=== PATIENT | male | born 1980 | race Caucasian/White ===

== ENCOUNTER 2019-04-01 11:43 | Inpatient (IN) | payer OTHER ==
[~2019-04-01] VITALS: Ht 167.6 cm; Wt 63.5 kg
[~2019-04-01 11:43] MED LIST: AUGMENTIN 875875 MG PO; BACTRIM DS TAB1 EACH PO; CLEOCIN HCL150 MG PO; DOLOPHINE HCL10 MG PO; FEVERALL JR 32325 M1 PO; IBUPROFEN 600600 M1 PO; IBUPROFEN 800800 M1 PO; KEFLEX500 MG PO; MUCINEX DM TABL1 TA1; NOHOMEMEDICATIONS; NORCO 5-325 TA1 EACH PO; OXYCODONE HCL E10 MG PO; OXYCODONE HCL5 MG PO; OXYCODONE HYDROC5 GM MC; PENICILLIN V P500 MG PO; PERCOCET 5-3251 EACH PO; PERCOCET PO; PRENATAL VITAM1 EAC4; VITAMIN B-1100 M1
[2019-04-01 11:45] VITALS: BP 125/97
[2019-04-01 12:02] LABS: HEMATOCRIT 45.5 % (42.0-52.0); HEMOGLOBIN 15.7 gm/dL (14.0-18.0); MCH 31.8 pg (26.0-34.0); MCHC 34.6 g/dL (28.0-37.0); RBC 4.94 mil/uL (4.50-6.00); WBC 5.8 thou/uL (4.0-11.0)
[2019-04-01 12:14] LABS: CREATININE 0.4 mg/dL (0.7-1.3)
[2019-04-01 14:37] VITALS: BP 106/72
[2019-04-01 14:40] LABS: AMP/METHAMP Negative (Negative); BARBITURATES Negative (Negative); BENZODIAZEPINES Negative (Negative); COCAINE Negative (Negative); METHADONE Negative (Negative); OPIATES POSITIVE (Negative); PCP Negative (Negative)
[2019-04-01 15:15] VITALS: BP 103/65
[2019-04-01 17:01] VITALS: BP 112/67
[2019-04-01 20:32] VITALS: BP 114/68
[2019-04-02 05:48] VITALS: BP 113/67
[2019-04-02 07:42] VITALS: BP 125/88
[2019-04-02 19:19] VITALS: BP 139/44
[2019-04-03 05:30] VITALS: BP 129/49
[2019-04-03 06:01] LABS: APTT 27.8 Seconds (24.5-32.8); INR 1.1; PROTIME 11.4 Seconds (9.3-11.4)
[2019-04-03 08:50] VITALS: BP 117/72
[2019-04-03 16:28] VITALS: BP 125/65
[2019-04-03 19:33] VITALS: BP 128/74
[2019-04-04 05:17] VITALS: BP 122/77
[2019-04-04 05:18] LABS: ABSOLUTE NEUTROPHILS 4.1 thou/uL (1.4-8.2); BASOPHILS 0.7 % (0.0-2.0); EOSINOPHILS 3.3 % (0.0-3.0); HEMATOCRIT 40.6 % (42.0-52.0); HEMOGLOBIN 13.8 gm/dL (14.0-18.0); LYMPHOCYTES 11.7 % (24.0-44.0); MCH 31.2 pg (26.0-34.0); MCHC 34.1 g/dL (28.0-37.0); MCV 91.6 fL (80.0-100.0); MONOCYTES 11.4 % (1.0-8.0); PLATELET COUNT 110 thou/uL (150-400); POLYS 72.9 % (36.0-66.0); RBC 4.43 mil/uL (4.50-6.00); RDW 14.4 % (10.5-14.5); WBC 5.6 thou/uL (4.0-11.0)
[2019-04-04 05:35] LABS: CALCIUM 8.1 mg/dL (8.5-10.1); CREATININE 0.7 mg/dL (0.7-1.3); MAGNESIUM 1.9 mg/dL (1.8-2.4); POTASSIUM 4.6 mmol/L (3.5-5.1); TOTAL BILIRUBIN 0.8 mg/dL (<0.1-1.0); TOTAL PROTEIN 6.8 g/dL (6.4-8.2)
[2019-04-04 07:31] VITALS: BP 126/62
[2019-04-04 15:57] VITALS: BP 117/64
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
--- NOTE | 2019-04-04 19:51 | P ---
[facility] [place] [address] PROCEDURE REPORT Name: CAITLIN ANN Room #: 432-P ADM IN M.R.#: [id number] Admission: 04/01/19 ������������������ Attend Phys: Tony Keenan MD Discharge: ������������������ Date of : 84 Report #: [id number] THIS REPORT FOR: //name// CC: [facility] physician/PCP Tony Keenan DATE OF SERVICE: 04/03/2019 CHIEF COMPLAINT: Abscess to the right lower extremity. PREPROCEDURE DIAGNOSIS: Subcutaneous abscess, right lower leg. POSTPROCEDURE DIAGNOSIS: Subcutaneous abscess, right lower leg. PROCEDURE PERFORMED: Incision and drainage of abscess of the right lower leg. SPECIMENS COLLECTED: Culture and sensitivity of purulent contents of abscess. DESCRIPTION OF PROCEDURE: After appropriate informed consent was both given verbally and then signed, the area of the right leg was prepped and draped in the usual sterile fashion, then anesthetized with 1% lidocaine with epinephrine. Following adequate anesthesia, an incision was made with a #15 bladed scalpel, releasing a moderate amount of purulent material. A culture was obtained. The patient has specifically indicated he does not want to have his leg packed and will not allow for that. It was recommended; however, he once again is insistent that it be left open. The wound was dressed with a dry ABD and gauze dressing. The patient tolerated the procedure well. ESTIMATED BLOOD LOSS: 3 mL. Pain experienced with procedure 3 on a scale of 1-10. Postprocedure 2 on a scale of 1-10. The preprocedure measurements were 3.7 x 1.5 by intact skin. The postprocedure measurement is 3.8 x 1.8 x 1.2 cm. ��������������������������������������������� <ELECTRONICALLY SIGNED> ���������������������������������������� By: Cole Cook MD ��������������������������������������������� 04/04/19 1951 1401 0502 Cole Cook MD /nt
--- NOTE | 2019-04-04 19:51 | HC ---
[facility] [place] [address] CONSULTATION Name: CAITLIN ANN Room #: 432-P ADM IN M.R.#: [id number] Admission: 04/01/19 ������������������ Attend Phys: Tony Keenan MD Discharge: ������������������ Date of : 84 Report #: [id number] THIS REPORT FOR: //name// CC: [facility] physician/PCP Tony Keenan DATE OF SERVICE: 04/03/2019 CHIEF COMPLAINT: Multiple cutaneous abscesses. HISTORY OF PRESENT ILLNESS: This is a 38-year-old male patient who was admitted through the Emergency Department with cellulitis of the right wrist and shoulder and an abscess of the right lower leg. The patient had had incision and drainage of his right, from hand and forearm on 03/06/2016. This area has been inflamed yet again, but he was admitted on 04/01/2019 with severe low back pain. Apparently, he fell off of a second-phoebe roof the previous day. PAST MEDICAL HISTORY: Positive for history of abscess to the left lower leg, multiple previous abscesses, cellulitis, compression fracture of the spine and has a history of IV drug abuse and noncompliance. ALLERGIES: ACETAMINOPHEN. MEDICATIONS: Include Keflex and Bactrim. SOCIAL HISTORY: The patient admits to cigarette smoking daily. He has a history of methamphetamine use. Denies alcohol use. FAMILY HISTORY: Noncontributory. REVIEW OF SYSTEMS: CONSTITUTIONAL: The patient denies fever, but does complain of some mild chills. ENT: The patient denies earache, nasal drainage or sore throat. CARDIOVASCULAR: The patient denies chest pain, palpitation or diaphoresis. PULMONARY: The patient denies cough or shortness of breath. GASTROINTESTINAL: The patient denies nausea, vomiting, diarrhea or abdominal pain. ORTHOPEDIC: The patient complains of pain and swelling in the left wrist area as well as the right anterior shoulder region as well as right lower leg. The right lower leg is the most painful. Other systems in a 14-point review of systems are negative. PHYSICAL EXAMINATION: VITAL SIGNS: The patient's vital signs at this time include temperature 99.0, pulse 90, respiratory rate of 18 and blood pressure 117/72. [address] [address] CONSULTATION Name: CAITLIN ANN Room #: 432-P ADM IN M.R.#: [id number] Admission: 04/01/19 ������������������ Attend Phys: Tony Keenan MD Discharge: ������������������ Date of : 84 Report #: [id number] GENERAL: This is a well-developed, well-nourished male patient, who appears to be in minimal distress. HEENT: Head normocephalic. Nose and throat are clear. NECK: Supple. LUNGS: Clear. ABDOMEN: Soft. Bowel sounds present. EXTREMITIES: Demonstrate erythematous and swollen areas involving the left wrist and forearm. No definitive area of abscess is noted at this time. He has a small area of erythema involving his right anterior axillary region. There is an abscess involving the right lower leg. An incision and drainage procedure was performed at the bedside today. Please see separate dictation. CLINICAL IMPRESSION: 1. Abscess of the right lower leg, now status post an incision and drainage at the bedside. 2. Recent L3 compression fracture. 3. History of chronic IV methamphetamine abuse. RECOMMENDATIONS: At this point in time, we will recommend culture and sensitivity from the abscess. He has declined to have the abscess packed and has asked that it be left unpacked. We have dressed it with dry gauze dressing. We would recommend IV antibiotics pending culture and sensitivity results. We will defer pain management to the hospitalist team. Although the patient has requested supplemental medications due to the abscess, I have once again discussed with him that the pain medication will be managed and written by only one of the physicians involved in his care. I appreciate being asked to see him in consultation. ��������������������������������������������� <ELECTRONICALLY SIGNED> ���������������������������������������� By: Cole Cook MD ��������������������������������������������� 04/04/19 1949 [id number] Cole Cook MD /nt
[2019-04-04 22:16] VITALS: BP 89/39
[2019-04-04 23:44] LABS: URINE BILIRUBIN NEGATIVE (Negative); URINE BLOOD NEGATIVE (Negative); URINE CLARITY SL CLOUDY; URINE COLOR YELLOW; URINE GLUCOSE-RANDOM* NEGATIVE (Negative); URINE KETONES NEGATIVE (Negative); URINE LEUKOCYTES-REFLEX NEGATIVE (Negative); URINE NITRITE-REFLEX NEGATIVE (Negative); URINE PROTEIN (DIPSTICK) NEGATIVE (Negative)
[2019-04-05 02:50] VITALS: BP 113/68
[2019-04-05] MEDS ORDERED: OXYCODONE HCL30 MG PO (08:42)
[2019-04-05] MEDS ORDERED: LINEZOLID600 MG PO (08:42)
[2019-04-05 10:43] VITALS: BP 113/68
[2019-04-05 11:28] VITALS: BP 116/65
== END 2019-04-05 13:50 | disposition home or self-care (01) | DRG 603 ==
LOC: ER 11:43 → 4E 14:26 → EROBS 14:26 → 4E 15:40
PROVIDERS: Physician Assistant; ADMIT Internal Medicine
PROC: 0Y9H0ZZ Drainage of Right Lower Leg, Open Approach (ICD-10-PCS; principal; 2019-04-03)
DX: L02.415 Cutaneous abscess of right lower limb (principal); L03.114 Cellulitis of left upper limb; S32.039A Unspecified fracture of third lumbar vertebra, initial encounter for closed fracture; F17.210 Nicotine dependence, cigarettes, uncomplicated; F15.10 Other stimulant abuse, uncomplicated; Z91.19 Patient's noncompliance with other medical treatment and regimen; Z88.8 Allergy status to other drugs, medicaments and biological substances; Z71.6 Tobacco abuse counseling; Y93.89 Activity, other specified; Y92.89 Other specified places as the place of occurrence of the external cause; Y99.8 Other external cause status; W13.2XXA Fall from, out of or through roof, initial encounter
CPT/HCPCS: 10084; 10183

== ENCOUNTER 2019-04-30 14:19 | Emergency (ER) | payer OTHER ==
[~2019-04-30] VITALS: Ht 167.6 cm; Wt 63.5 kg
[~2019-04-30 14:19] MED LIST changes: +LINEZOLID600 MG PO; +OXYCODONE HCL30 MG PO
[2019-04-30] MEDS ORDERED: NAPROSYN500 MG PO (16:18)
[2019-04-30] MEDS ORDERED: NORFLEX100 MG PO (16:18)
[2019-04-30 16:25] VITALS: BP 110/68
== END 2019-04-30 16:25 | disposition home or self-care (01) ==
LOC: ER 14:19
DX: S39.012A Strain of muscle, fascia and tendon of lower back, initial encounter (principal); F17.210 Nicotine dependence, cigarettes, uncomplicated; Z87.81 Personal history of (healed) traumatic fracture; Z88.6 Allergy status to analgesic agent; W11.XXXA Fall on and from ladder, initial encounter; Y93.89 Activity, other specified; Y92.89 Other specified places as the place of occurrence of the external cause; Y99.8 Other external cause status

== ENCOUNTER 2019-05-20 22:01 | Emergency (ER) | payer OTHER ==
[~2019-05-20] VITALS: Ht 167.6 cm; Wt 63.5 kg
[~2019-05-20 22:01] MED LIST changes: +NAPROSYN500 MG PO; +NORFLEX100 MG PO
[2019-05-20 23:45] LABS: ABSOLUTE NEUTROPHILS 2.9 thou/uL (1.4-8.2); BASOPHILS 0.4 % (0.0-2.0); EOSINOPHILS 1.3 % (0.0-3.0); HEMATOCRIT 40.3 % (42.0-52.0); HEMOGLOBIN 13.8 gm/dL (14.0-18.0); LYMPHOCYTES 19.1 % (24.0-44.0); MCH 31.2 pg (26.0-34.0); MCHC 34.2 g/dL (28.0-37.0); MCV 91.1 fL (80.0-100.0); MONOCYTES 11.6 % (1.0-8.0); PLATELET COUNT 155 thou/uL (150-400); POLYS 67.6 % (36.0-66.0); RBC 4.42 mil/uL (4.50-6.00); RDW 14.5 % (10.5-14.5); WBC 4.3 thou/uL (4.0-11.0)
[2019-05-20 23:53] LABS: CALCIUM 8.1 mg/dL (8.5-10.1); CREATININE 0.7 mg/dL (0.7-1.3); POTASSIUM 3.8 mmol/L (3.5-5.1)
[2019-05-20 23:59] LABS: ALBUMIN 2.9 g/dL (3.4-5.0); DIRECT BILIRUBIN 0.2 mg/dL (<0.1-0.3); TOTAL BILIRUBIN 0.5 mg/dL (<0.1-1.0); TOTAL PROTEIN 6.9 g/dL (6.4-8.2)
[2019-05-21] MEDS ORDERED: BACTRIM DS TAB1 EACH PO (00:55)
[2019-05-21] MEDS ORDERED: KEFLEX500 M1 PO (00:55)
[2019-05-21] MEDS ORDERED: OXYCODONE HCL 55 MG PO (00:55)
[2019-05-21 01:15] VITALS: BP 109/70
== END 2019-05-21 01:16 | disposition home or self-care (01) ==
LOC: ER 22:01
PROVIDERS: Emergency Medicine
DX: L03.114 Cellulitis of left upper limb (principal); F17.210 Nicotine dependence, cigarettes, uncomplicated; Z88.6 Allergy status to analgesic agent

== ENCOUNTER 2019-05-23 19:40 | Emergency (ER) | payer OTHER ==
[~2019-05-23] VITALS: Ht 167.6 cm; Wt 63.5 kg
[~2019-05-23 19:40] MED LIST changes: +KEFLEX500 M1 PO; +OXYCODONE HCL 55 MG PO
[2019-05-23 22:22] LABS: ABSOLUTE NEUTROPHILS 2.7 thou/uL (1.4-8.2); BASOPHILS 0.4 % (0.0-2.0); EOSINOPHILS 0.7 % (0.0-3.0); HEMATOCRIT 41.3 % (42.0-52.0); LYMPHOCYTES 21.5 % (24.0-44.0); MCH 30.9 pg (26.0-34.0); MCHC 33.8 g/dL (28.0-37.0); MCV 91.3 fL (80.0-100.0); MONOCYTES 10.7 % (1.0-8.0); PLATELET COUNT 154 thou/uL (150-400); POLYS 66.7 % (36.0-66.0); RBC 4.52 mil/uL (4.50-6.00); RDW 14.6 % (10.5-14.5); WBC 4.1 thou/uL (4.0-11.0)
[2019-05-23 22:25] LABS: CREATININE 0.8 mg/dL (0.7-1.3); POTASSIUM 3.6 mmol/L (3.5-5.1)
[2019-05-23 23:50] VITALS: BP 134/71
== END 2019-05-23 23:50 | disposition home or self-care (01) ==
LOC: ER 19:40
PROVIDERS: Emergency Medicine
DX: M25.532 Pain in left wrist (principal); F15.10 Other stimulant abuse, uncomplicated; F17.210 Nicotine dependence, cigarettes, uncomplicated; Z88.6 Allergy status to analgesic agent